=== PATIENT | female | born 1990 | race Caucasian/White ===

== ENCOUNTER 2019-09-07 12:38 | Emergency (ER) | payer SELFPAY ==
[2019-09-07] VITALS (7 sets, daily range): BP systolic 113–126; BP diastolic 84–93; PULSE 105–114; RESP 16–18; TEMP 36.9; O2SAT 94–97; BMI 27.3
--- NOTE | 2019-09-07 | CTR_ITS ---
PROCEDURE INFORMATION: Exam: CT Right Upper Extremity With Contrast, Forearm Exam date and time: 09/07/2019 4:53 PM Age: 29 years old Clinical indication: Swelling and other: Redness; Arm, lower; Right; Additional info: Cellulitis, iv drug user TECHNIQUE: Imaging protocol: CT of the Right upper extremity with intravenous contrast was performed. Exam focused on the forearm. Total DLP: 1580.52 mGy-cm Radiation optimization: All CT scans at this facility use at least one of these dose optimization techniques: automated exposure control; mA and/or kV adjustment per patient size (includes targeted exams where dose is matched to clinical indication); or iterative reconstruction. Contrast material: OMNI 300; Contrast volume: 75 ml; Contrast route: IV; COMPARISON: No relevant prior studies available. FINDINGS: Bones/joints: Normal. No acute fracture or dislocation. Soft tissues: Subcutaneous soft tissue edema over the dorsal hand, dorsal medial forearm and dorsal elbow most consistent with cellulitis. No obvious abscess or soft tissue emphysema or osteomyelitis. Vasculature: Minimal subcutaneous fat edema over a superficial vein in the anterior distal arm without thrombus or occlusion. Axial series 5, image 60. CT/CT forearm RT w con [id number] IMPRESSION: 1. Subcutaneous soft tissue edema over the dorsal hand, dorsal medial forearm and dorsal elbow most consistent with cellulitis. 2. No obvious abscess or soft tissue emphysema or osteomyelitis. 3. Minimal subcutaneous fat edema over a superficial vein in the anterior distal arm without thrombus or occlusion. Axial series 5, image 60. Radiation Dose CTDIVOL = (mGy): DLP = 1580.52 (mGy-cm)
[2019-09-07 14:55] LABS: Basophils % 0.3 %; Eosinophils # 0.2 10^3/uL (0.0-0.8); Eosinophils % 1.4 %; Hematocrit 39.6 % (37.0-47.0); Hemoglobin 12.7 g/dL (11.5-15.3); Lymphocytes # 3.3 10^3/uL (0.8-4.8); Lymphocytes % 28.1 %; Mean Corpuscular HGB Conc 32.1 g/dL (30.0-36.0); Mean Corpuscular Hemoglobin 29.3 pg (28.0-34.0); Mean Corpuscular Volume 91.5 fL (81-99); Mean Platelet Volume 10.6 fL (7.4-10.4); Monocytes % 8.3 %; Neutrophils # 7.3 10^3/uL (1.8-7.7); Neutrophils % 61.6 %; Nucleated Red Blood Cells % 0 %; Platelet Count 274 10^3/cmm (130-400); Red Blood Count 4.33 10^6/uL (4.1-5.3); Red Cell Distribution Width 12.4 % (12.1-15.1); White Blood Count 11.8 10^3/uL (4.0-10.0)
--- NOTE | 2019-09-07 15:10 | ED_ITS ---
Documented by User: DAVID Michel 09/07/19 16:19 HPI - Skin/Abscess/Foreign Bdy General: Chief complaint: Skin/Abscess/Foreign Body Stated complaint: BI-LAT ARM PAIN Time Seen by Provider: 09/07/19 15:00 History of Present Illness: HPI narrative: Patient is a 29-year-old female who comes to the ED with upper extremity cellulitis. 4 days ago patient was shooting up methamphetamines. Patient says the person doing it was having some trouble and attempted injecting multiple sites on right and left arm. Over the last 4 days she has developed erythemic, warmth and swelling around the multiple injection sites. She denies any fevers but does state that she has had the chills. She also has felt nauseous. The cellulitis on the right hand was the first sign of infection to show up and is the more painful of all the spots. P baldev does not remember when she received her last tetanus shot. Patient also reports having MRSA one time in her life as a child. Associated symptoms: Reports chills; Deny fever(s), nausea or vomiting Review of Systems General: Reports: 10 or more systems reviewed and unremarkable except in HPI and below Const: Reports: chills; Denies: fever or fatigue Eyes: Denies: change in vision or eye discomfort ENMT: Denies: throat pain, painful swallowing, nasal discharge or nasal congestion Card: Denies: chest pain, palpitations, edema, swelling of feet/ankles, shortness of breath on exertion or shortness of breath when lying down Resp: Denies: shortness of breath, productive cough or non-productive cough GI: Denies: abdominal pain, nausea, vomiting, diarrhea, constipation or blood in stool : Denies: flank pain, painful urination or blood in urine Musc: Reports: extremity pain (Right Hand), extremity swelling (Right Hand) and redness (Right and Left upper extremities); Denies: neck pain or back pain Skin/Breast: Reports: redness, skin tenderness and skin swelling; Denies: rash Neuro: Denies: headache, numbness in extremities or weakness in extremities [facility] ED PFSH: Social History Smoking and tobacco status: current every day smoker Physical Exam Narrative: EXAM NARRATIVE: Patient is a 29-year-old female who is sitting comfortably in the bed when I enter the exam room. Just walking into the room I noticed multiple signs of cellulitis on both right and left arms. Const: COMMON NORMALS: oriented x3 HENMT: COMMON NORMALS: normocephalic HEAD & SCALP: normocephalic MOUTH: oral and palatal mucosa normal THROAT: posterior oropharynx normal and uvula midline Neck/C-Spine: COMMON NORMALS: supple GENERAL: Yes normal visual inspection Resp: COMMON NORMALS: normal respiratory effort, no retractions, no use of accessory muscles and clear to auscultation bilaterally AUSCULTATION: clear to auscultation bilaterally Cardio: COMMON NORMALS: regular rate, regular rhythm, S1 normal heart sound, S2 normal heart sound, no gallops, no clicks, no murmurs and peripheral pulses 2+ throughout RATE: regular rate RHYTHM: regular rhythm HEART SOUNDS: S1 normal and S2 normal PERIPHERAL PULSES: pulses 2+ throughout GI: COMMON NORMALS: normal to inspection, nondistended, normoactive bowel sounds, soft to palpation, non-tender and no masses PALPATION: Yes soft : COMMON NORMALS: Yes no CVA tenderness BLADDER/KIDNEY EXAM: Yes no CVA tenderness Back/Pelvis: COMMON NORMALS: no CVA tenderness Extremity: NARRATIVE EXTREMITY EXAM: Multiple sites of cellulitis (injection sites) on both right and left upper extremities. Neuro: COMMON NORMALS: oriented x3 and moves all extremities Skin: OTHER: Patient has multiple sites of cellulitis on both right and left upper extremities. Right hand looks the most severe and is swollen, erythemic, warm and tender. There is also some tracking up the right arm and 2 other injection sites one on the forearm and one on the upper arm. Those sites have swelling, erythema, warmth as well. Sites are indurated and nonfluctuant. The left arm has multiple injection sites (Cellulitis) as well. Locations are on the on the left hand, left forearm and left upper arm. Course Vital Signs: Vital signs: Vital Signs Temperature 98.4 F 09/07/19 12:53 Pulse Rate 114 H 09/07/19 12:53 Respiratory Rate 16 09/07/19 18:00 Blood Pressure 113/84 09/07/19 17:00 Pulse Oximetry 94 09/07/19 12:53 MDM - Skin/Abscess/Foreign Bdy Lab Data: Attestation: I reviewed the patient's lab results. Labs: Lab Results 09/07/19 09/07/19 09/07/19 Range/Units 14:27 14:27 14:27 WBC 11.8 H (4.0-10.0) 10^3/ uL RBC 4.33 (4.1-5.3) 10^6/u L Hgb 12.7 (11.5-15.3) g/dL Hct 39.6 (37.0-47.0) % MCV 91.5 (81-99) fL MCH 29.3 (28.0-34.0) pg MCHC 32.1 (30.0-36.0) g/dL RDW 12.4 (12.1-15.1) % Plt Count 274 (130-400) 10^3/c mm MPV 10.6 H (7.4-10.4) fL Neut % (Auto) 61.6 % Lymph % (Auto) 28.1 % [place] % (Auto) 8.3 % Eos % (Auto) 1.4 % Baso % (Auto) 0.3 % Neut # (Auto) 7.3 (1.8-7.7) 10^3/u L Lymph # (Auto) 3.3 (0.8-4.8) 10^3/u L [place] # (Auto) 1.0 H (0.2-0.9) 10^3/u L Eos # (Auto) 0.2 (0.0-0.8) 10^3/u L Baso # (Auto) 0.0 (0.0-0.1) 10^3/u L Nucleated RBC % (a uto) 0 % Nucleated RBCs # 0.0 /100WBC ESR (0-15) mm/hr Sodium 136 (136-145) mmol/L Potassium 3.9 (3.5-5.1) mmol/L Chloride 100 (98-107) mmol/L Carbon Dioxide 24 (22-29) mmol/L Anion Gap 15.9 (5-19) BUN 7 (6-20) mg/dL Creatinine 0.6 (0.5-0.9) mg/dL GFR Calculation 118.2 (90-130) mL/min Glucose 119 H (65-115) mg/dL Calculated Osmolal ity 279 L (285-295) mOsm/k g Calcium 9.3 (8.5-10.5) mg/dL Total Bilirubin 0.3 (0.15-1.2) mg/dL AST 23 (0-32) U/L ALT 17 (0-33) U/L Alkaline Phosphata se 78 (35-105) IU/L C-Reactive Protein (0.0-4.9) mg/L Total Protein 7.4 (6.6-8.7) g/dL Albumin 4.0 (3.5-5.2) g/dL Globulin 3.4 (1.3-4.6) g/dL HCG, Qual Negative (Negative) 09/07/19 09/07/19 Range/Units 14:27 14:27 WBC (4.0-10.0) 10^3/ uL RBC (4.1-5.3) 10^6/u L Hgb (11.5-15.3) g/dL Hct (37.0-47.0) % MCV (81-99) fL MCH (28.0-34.0) pg MCHC (30.0-36.0) g/dL RDW (12.1-15.1) % Plt Count (130-400) 10^3/c mm MPV (7.4-10.4) fL Neut % (Auto) % Lymph % (Auto) % [place] % (Auto) % Eos % (Auto) % Baso % (Auto) % Neut # (Auto) (1.8-7.7) 10^3/u L Lymph # (Auto) (0.8-4.8) 10^3/u L [place] # (Auto) (0.2-0.9) 10^3/u L Eos # (Auto) (0.0-0.8) 10^3/u L Baso # (Auto) (0.0-0.1) 10^3/u L Nucleated RBC % (a uto) % Nucleated RBCs # /100WBC ESR 25 H (0-15) mm/hr Sodium (136-145) mmol/L Potassium (3.5-5.1) mmol/L Chloride (98-107) mmol/L Carbon Dioxide (22-29) mmol/L Anion Gap (5-19) BUN (6-20) mg/dL Creatinine (0.5-0.9) mg/dL GFR Calculation (90-130) mL/min Glucose (65-115) mg/dL Calculated Osmolal ity (285-295) mOsm/k g Calcium (8.5-10.5) mg/dL Total Bilirubin (0.15-1.2) mg/dL AST (0-32) U/L ALT (0-33) U/L Alkaline Phosphata se (35-105) IU/L C-Reactive Protein 58.7 H (0.0-4.9) mg/L Total Protein (6.6-8.7) g/dL Albumin (3.5-5.2) g/dL Globulin (1.3-4.6) g/dL HCG, Qual (Negative) Discharge Plan Discharge Patient Disposition: Home, Self-Care Clinical Impression: IV drug abuse Cellulitis Qualifiers: Site of cellulitis: extremity Site of cellulitis of extremity: upper extremity Laterality: unspecified laterality Qualified Code(s): L03.119 - Cellulitis of unspecified part of limb Condition: Stable Prescriptions: New Bactrim DS 800-160 mg tablet 1 tab PO BID 10 Days Qty: 20 RF: 0 No Action Tylenol 325 mg Tablet 650 mg PO PRN RF: 0 Adult Multivitamin Gummies 200 mcg Tablet,Chewable 400 mcg PO DAILY RF: 0 Discharge Diet: Regular Discharge Activity: Resume usual activity Patient Instructions: Cellulitis (ED), Methamphetamine Abuse (ED) Activity Restrictions/Additional Instructions: Follow-up with your PCP or return to the ED for reevaluation in 5 to 7 days. Take full course of antibiotics as prescribed. You can take Tylenol or ibuprofen for fever or pain. Drink plenty of fluids and stay hydrated. Coding Level of Care Code ED Directory Carrier for Chg Fwd Exam Comprehensive Documented by User: DIXIE López 09/07/19 18:09 HPI - Skin/Abscess/Foreign Bdy General: Chief complaint: Skin/Abscess/Foreign Body Stated complaint: BI-LAT ARM PAIN Time Seen by Provider: 09/07/19 15:00 [facility] ED PFSH: Social History Smoking and tobacco status: current every day smoker Course ED course: Received patient from [facility]. Awaiting for CT scan results, if no deep cellulitis or nec. fascitis recommended discharge with treatment of antibiotic Vital Signs: Vital signs: Vital Signs Temperature 98.4 F 09/07/19 12:53 Pulse Rate 114 H 09/07/19 12:53 Respiratory Rate 16 09/07/19 18:00 Blood Pressure 113/84 09/07/19 17:00 Pulse Oximetry 94 09/07/19 12:53 MDM - Skin/Abscess/Foreign Bdy MDM Narrative: Medical decision making narrative: Patient came in today with areas of cellulitis to bilateral upper extremities. Patient has good range of motion of the extremities. Good pulses in the extremities. Prompt capillary refill distal to the injuries. Differential diagnosis includes cellulitis, necrotizing fasciitis, osteomyelitis, DVT. Laboratory values were insignificant. CT scan of the upper extremities noted cellulitis without any deep tissue abnormalities. Reviewed exam with patient recommended treatment with Bactrim as directed by Juan Luis Pillai PA-C. Reviewed post visit treatment and need for follow-up. Patient reported understanding. Lab Data: Labs: Lab Results 09/07/19 09/07/19 09/07/19 Range/Units 14:27 14:27 14:27 WBC 11.8 H (4.0-10.0) 10^3/ uL RBC 4.33 (4.1-5.3) 10^6/u L Hgb 12.7 (11.5-15.3) g/dL Hct 39.6 (37.0-47.0) % MCV 91.5 (81-99) fL MCH 29.3 (28.0-34.0) pg MCHC 32.1 (30.0-36.0) g/dL RDW 12.4 (12.1-15.1) % Plt Count 274 (130-400) 10^3/c mm MPV 10.6 H (7.4-10.4) fL Neut % (Auto) 61.6 % Lymph % (Auto) 28.1 % Newport % (Auto) 8.3 % Eos % (Auto) 1.4 % Baso % (Auto) 0.3 % Neut # (Auto) 7.3 (1.8-7.7) 10^3/u L Lymph # (Auto) 3.3 (0.8-4.8) 10^3/u L Newport # (Auto) 1.0 H (0.2-0.9) 10^3/u L Eos # (Auto) 0.2 (0.0-0.8) 10^3/u L Baso # (Auto) 0.0 (0.0-0.1) 10^3/u L Nucleated RBC % (a uto) 0 % Nucleated RBCs # 0.0 /100WBC ESR (0-15) mm/hr Sodium 136 (136-145) mmol/L Potassium 3.9 (3.5-5.1) mmol/L Chloride 100 (98-107) mmol/L Carbon Dioxide 24 (22-29) mmol/L Anion Gap 15.9 (5-19) BUN 7 (6-20) mg/dL Creatinine 0.6 (0.5-0.9) mg/dL GFR Calculation 118.2 (90-130) mL/min Glucose 119 H (65-115) mg/dL Calculated Osmolal ity 279 L (285-295) mOsm/k g Calcium 9.3 (8.5-10.5) mg/dL Total Bilirubin 0.3 (0.15-1.2) mg/dL AST 23 (0-32) U/L ALT 17 (0-33) U/L Alkaline Phosphata se 78 (35-105) IU/L C-Reactive Protein (0.0-4.9) mg/L Total Protein 7.4 (6.6-8.7) g/dL Albumin 4.0 (3.5-5.2) g/dL Globulin 3.4 (1.3-4.6) g/dL HCG, Qual Negative (Negative) 09/07/19 09/07/19 Range/Units 14:27 14:27 WBC (4.0-10.0) 10^3/ uL RBC (4.1-5.3) 10^6/u L Hgb (11.5-15.3) g/dL Hct (37.0-47.0) % MCV (81-99) fL MCH (28.0-34.0) pg MCHC (30.0-36.0) g/dL RDW (12.1-15.1) % Plt Count (130-400) 10^3/c mm MPV (7.4-10.4) fL Neut % (Auto) % Lymph % (Auto) % [place] % (Auto) % Eos % (Auto) % Baso % (Auto) % Neut # (Auto) (1.8-7.7) 10^3/u L Lymph # (Auto) (0.8-4.8) 10^3/u L [place] # (Auto) (0.2-0.9) 10^3/u L Eos # (Auto) (0.0-0.8) 10^3/u L Baso # (Auto) (0.0-0.1) 10^3/u L Nucleated RBC % (a uto) % Nucleated RBCs # /100WBC ESR 25 H (0-15) mm/hr Sodium (136-145) mmol/L Potassium (3.5-5.1) mmol/L Chloride (98-107) mmol/L Carbon Dioxide (22-29) mmol/L Anion Gap (5-19) BUN (6-20) mg/dL Creatinine (0.5-0.9) mg/dL GFR Calculation (90-130) mL/min Glucose (65-115) mg/dL Calculated Osmolal ity (285-295) mOsm/k g Calcium (8.5-10.5) mg/dL Total Bilirubin (0.15-1.2) mg/dL AST (0-32) U/L ALT (0-33) U/L Alkaline Phosphata se (35-105) IU/L C-Reactive Protein 58.7 H (0.0-4.9) mg/L Total Protein (6.6-8.7) g/dL Albumin (3.5-5.2) g/dL Globulin (1.3-4.6) g/dL HCG, Qual (Negative) Discharge Plan Discharge Patient Disposition: Home, Self-Care Clinical Impression: IV drug abuse Cellulitis Qualifiers: Site of cellulitis: extremity Site of cellulitis of extremity: upper extremity Laterality: unspecified laterality Qualified Code(s): L03.119 - Cellulitis of unspecified part of limb Condition: Stable Prescriptions: New Bactrim DS 800-160 mg tablet 1 tab PO BID 10 Days Qty: 20 RF: 0 No Action Tylenol 325 mg Tablet 650 mg PO PRN RF: 0 Adult Multivitamin Gummies 200 mcg Tablet,Chewable 400 mcg PO DAILY RF: 0 Discharge Diet: Regular Discharge Activity: Resume usual activity Patient Instructions: Cellulitis (ED), Methamphetamine Abuse (ED) Activity Restrictions/Additional Instructions: Follow-up with your PCP or return to the ED for reevaluation in 5 to 7 days. Take full course of antibiotics as prescribed. You can take Tylenol or ibuprofen for fever or pain. Drink plenty of fluids and stay hydrated. Coding Level of Care Code ED Directory Carrier for Britney Fwd Exam Comprehensive
[2019-09-07 15:15] LABS: Alanine Aminotransferase 17 U/L (0-33); Alkaline Phosphatase 78 IU/L (35-105); Anion Gap 15.9 (5-19); Aspartate Amino Transferase 23 U/L (0-32); Blood Urea Nitrogen 7 mg/dL (6-20); Calcium 9.3 mg/dL (8.5-10.5); Carbon Dioxide 24 mmol/L (22-29); Chloride 100 mmol/L (98-107); Globulin 3.4 g/dL (1.3-4.6); Glomerular Filtration Rate 118.2 mL/min (90-130); Glucose 119 mg/dL (65-115); Osmolality Calculated 279 mOsm/kg (285-295); Potassium 3.9 mmol/L (3.5-5.1); Sodium 136 mmol/L (136-145); Total Bilirubin 0.3 mg/dL (0.15-1.2); Total Protein 7.4 g/dL (6.6-8.7)
[2019-09-07 15:18] LABS: HCG, Serum Qual Negative (Negative)
--- NOTE | 2019-09-07 15:29 | CTR_ITS ---
PROCEDURE INFORMATION: Exam: CTA Left Upper Extremity With Contrast Exam date and time: 09/07/2019 4:04 PM Age: 29 years old Clinical indication: Swelling and other: Redness; Arm, lower; Left; Additional info: Cellulitis, iv drug user TECHNIQUE: Imaging protocol: Computed tomographic angiography of the Left upper extremity with intravenous contrast material, including non-contrast images if performed. 3D rendering: MIP and/or 3D reconstructed images were created by the technologist. Total DLP: 1450.93 mGy-cm Radiation optimization: All CT scans at this facility use at least one of these dose optimization techniques: automated exposure control; mA and/or kV adjustment per patient size (includes targeted exams where dose is matched to clinical indication); or iterative reconstruction. Contrast material: OMNI 300; Contrast volume: 75 ml; Contrast route: IV; COMPARISON: No relevant prior studies available. FINDINGS: Left subclavian artery: No acute findings. No occlusion or significant stenosis. Left axillary artery: No acute findings. No occlusion or significant stenosis. Left brachial artery: No acute findings. No occlusion or significant stenosis. Left radial artery: No acute findings. No occlusion or significant stenosis. Left ulnar artery: No acute findings. No occlusion or significant stenosis. Bones/joints: No acute fracture. No dislocation. Soft tissues: Edema in the subcutaneous fat of the dorsal hand, dorsal lateral wrist, dorsal lateral forearm and anterior medial elbow. Probable cellulitis without obvious abscess, soft tissue emphysema or osteomyelitis. CT/CT forearm LT w con [id number] IMPRESSION: Edema in the subcutaneous fat of the dorsal hand, dorsal lateral wrist, dorsal lateral forearm and anterior medial elbow. Probable cellulitis without obvious abscess, soft tissue emphysema or osteomyelitis. Radiation Dose CTDIVOL = (mGy): DLP = 1450.93 (mGy-cm)
[2019-09-07] MEDS: HYDROcodone-acetaminophen 7.5-325 mg Tablet 1 TAB PO (15:33)
[2019-09-07] MEDS: sodium chloride 0.9% 1,000 ML 999 ML IV (15:33)
[2019-09-07] MEDS: tetanus-dipt-pertussis 0.5 mL SDV IM (16:17)
[2019-09-07 16:21] LABS: C Reactive Protein 58.7 mg/L (0.0-4.9)
[2019-09-07 16:50] LABS: Erythrocyte Sedimentation Rate 25 mm/hr (0-15)
[2019-09-07] MEDS: iohexol 300 mg/mL 100 mL Btl IV ×2 (17:02→17:05)
[2019-09-07] MEDS: ondansetron 2 mg/ML SDV 2 mL 4 MG IVP (17:10)
[2019-09-07] MEDS: morphine 4 mg/mL SDV 1 mL IVP (17:10)
[2019-09-07] MEDS: HYDROcodone-acetaminophen 5-325 mg Tablet 1 TAB PO (18:10)
== END 2019-09-07 18:52 | disposition home or self-care (01) ==
PROVIDERS: Physician Assistant; Emergency Provider Nurse Practitioner Family
DX: L03.114 Cellulitis of left upper limb (principal); L03.113 Cellulitis of right upper limb; F15.90 Other stimulant use, unspecified, uncomplicated; F17.200 Nicotine dependence, unspecified, uncomplicated; Z86.14 Personal history of Methicillin resistant Staphylococcus aureus infection
CPT/HCPCS: 12345; 36415; 73201; 80053; 84703; 85025; 85651; 86140; 87040; 90471; 90715; 96360; 96361; 96365; 96366; 96375; 99283; 99284; J2270; J2405; J3370; J7030; J7050; Q9967

== ENCOUNTER 2024-03-07 07:34 | Emergency (ER) | payer MEDICAID, SELFPAY ==
--- NOTE | 2024-03-07 07:44 | XRR_ITS ---
PROCEDURE INFORMATION: Exam: XR Right Foot Exam date and time: 03/07/2024 7:58 AM Age: 33 years old Clinical indication: Injury or trauma; Other: Twisted ankle; Sprain or strain; Foot; Right TECHNIQUE: Imaging protocol: Radiologic exam of the right foot. Views: 3 or more views. COMPARISON: No relevant prior studies available. FINDINGS: Bones/joints: There is hallux valgus deformity with bunion formation involving the 1st MTP joint and distal 1st metatarsal. No fracture or dislocation is appreciated. Joint spaces are relatively well preserved. Small osteophytes are noted involving the talonavicular joint and articulation of the navicular with the adjacent cuneiforms. Bony mineralization is normal. Soft tissues: Normal. XR/XR foot RT min 3V* [id number] IMPRESSION: 1. Slight hallux valgus deformity 1st MTP joint. 2. Bunion deformity distal 1st metatarsal.
[2024-03-07 08:10] VITALS: BP 148/93; PULSE 71; RESP 18; TEMP 36.8; O2SAT 97; BMI 31.0
--- NOTE | 2024-03-07 08:21 | XRR_ITS ---
PROCEDURE INFORMATION: Exam: XR Right Ankle Exam date and time: 03/07/2024 8:30 AM Age: 33 years old Clinical indication: Injury or trauma; Other: Twisted ankle; Sprain or strain; Right TECHNIQUE: Imaging protocol: Radiologic exam of the right ankle. Views: 3 or more views. COMPARISON: CR XR foot RT min 3V* [id number] 03/07/2024 7:58 AM FINDINGS: Bones/joints: There is a small ossified bony density adjacent to the tip of the fibula. This appears to be old and may represent an old unfused fracture fragment or an accessory ossicle. No acute fracture or dislocation is appreciated. Bony mineralization is normal. Joint spaces are relatively well preserved. Soft tissues: There is soft tissue swelling laterally greater than medially. XR/XR ankle RT min 3V* [id number] IMPRESSION: 1. No acute fracture identified. 2. Soft tissue swelling.
--- NOTE | 2024-03-07 08:22 | W.ED.EXTPRO ---
HPI - Extremity Problem General: Chief complaint: Extremity Injury, Lower Stated complaint: Right foot injury Time Seen by Provider: 03/07/24 07:43 History of Present Illness: 33-year-old female who presents to the emergency room complaining of right foot injury. She was lifting a refrigerator into a truck and had an inversion type injury to her right ankle foot. Relates pain to the medial aspect of the foot distal and anterior to the medial malleolus. There is moderate amount of swelling present. Associated symptoms: Deny chest pain, fever(s) or rash Related Data Home Medications Medication Instructions Recorded Confirmed acetaminophen 325 mg tablet 650 mg PO Q6H PRN Pain 09/07/19 03/07/24 (Tylenol) buspirone 5 mg tablet 5 mg PO BID PRN Anxiety 03/07/24 03/07/24 fluoxetine 40 mg capsule 40 mg PO DAILY 03/07/24 03/07/24 varenicline 0.5 mg (11)-1 mg (42) See Rx Instructions .Route .COMPLEX 03/07/24 03/07/24 tablets in a dose pack Previous Rx's Medication Instructions Recorded diclofenac sodium 75 mg 75 mg PO Q12H PRN pain #20 tabs 03/07/24 tablet,delayed release Allergies Allergy/AdvReac Type Severity Reaction Status Date / Time No Known Allergies Allergy Verified 09/07/19 12:57 Review of Systems Const: Denies: fever(s) or chills Card: Denies: chest pain Resp: Denies: dyspnea GI: Denies: abdominal pain : Denies: dysuria, urinary frequency or urinary urgency Musc: Denies: neck pain or back pain Skin/Breast: Denies: rash [facility] ED PFSH: Social History Smoking and tobacco/nicotine status: current every day tobacco/nicotine user Physical Exam Const: COMMON NORMALS: no acute distress GENERAL APPEARANCE: cooperative and comfortable ORIENTATION/CONSCIOUSNESS: Yes awake, Yes oriented to person, Yes oriented to place and Yes oriented to time HENMT: COMMON NORMALS: normocephalic, atraumatic and hearing grossly normal bilaterally HEAD & SCALP: normocephalic and atraumatic Resp: COMMON NORMALS: normal respiratory effort, No retractions, No use of accessory muscles and clear to auscultation bilaterally AUSCULTATION: clear to auscultation bilaterally Cardio: COMMON NORMALS: regular rate, regular rhythm and No murmurs present (Cardio) RATE: regular rate RHYTHM: regular rhythm Extremity: COMMON NORMALS: normal to inspection, capillary refill normal and no calf tenderness OTHER: Exam of the right ankle shows some moderate swelling both medial and laterally tender to touch dorsalis pedis posterior tibialis pulses intact. Neuro: SENSORIUM/ORIENTATION: Yes oriented to person, Yes oriented to place and Yes oriented to time Skin: COMMON NORMALS: no rashes or lesions noted GENERAL SKIN EXAM: no rashes or lesions noted Course Vital Signs: Vital signs: Vital Signs Temperature 98.3 F 03/07/24 08:39 Pulse Rate 74 03/07/24 08:39 Respiratory Rate 16 03/07/24 08:39 Blood Pressure 132/83 03/07/24 08:39 Pulse Oximetry 98 03/07/24 08:39 Oxygen Delivery Me thod Room Air 03/07/24 08:39 MDM - Extremity (Nontraumatic) Medical Decision Making X-ray shows distal fibula avulsion fracture she does have some mild tenderness 0 placed in a posterior splint have her follow-up with podiatry nonweightbearing anti-inflammatories as needed Lab Data Radiology Impressions Foot X-Ray 03/07/24 07:44 IMPRESSION: 1. Slight hallux valgus deformity 1st MTP joint. 2. Bunion deformity distal 1st metatarsal. Ankle X-Ray 03/07/24 08:21 IMPRESSION: 1. No acute fracture identified. 2. Soft tissue swelling. All radiology interpretation(s) finalized by discharge Discharge Plan Discharge Patient Disposition: Home Clinical Impression: Avulsion fracture of distal fibula Condition: Stable Prescriptions: New diclofenac sodium 75 mg tablet,delayed release (DR/EC) 75 mg PO Q12H PRN (Reason: pain) Qty: 20 0RF No Action acetaminophen [Tylenol] 325 mg Tablet 650 mg PO Q6H PRN (Reason: Pain) fluoxetine 40 mg capsule 40 mg PO DAILY buspirone 5 mg tablet 5 mg PO BID PRN (Reason: Anxiety) varenicline 0.5 mg (11)- 1 mg (42) tablets,dose pack See Rx Instructions .ROUTE .COMPLEX Rx Instructions: Take as directed per package instructions. Discharge Orders: Discharge ED (Routine); Ordered 03/07/24 Ordered By: Esa Wood Referrals: Siliva Renee DO [Primary Care Provider] - Discharge Diet: Usual diet Discharge Activity: Limit activity as instructed Patient Instructions: Opioid Safety, Pain Management Activity Restrictions/Additional Instructions: Thank you for choosing [facility] for your healthcare needs today. It is very important that you follow up as instructed or that you return to the Emergency Department should you have concerns or if your condition changes or worsens in any way. You were seen today after an ankle injury. It appears to be a small avulsion from the distal part of the fibula. Recommend a posterior splint nonweightbearing and will refer you to orthopedics/podiatry. Stand Alone Forms: Work/School Release Coding Level of Care Code ED Caponizer for Britney Villanueva
[2024-03-07 08:39] VITALS: BP 132/83; PULSE 74; RESP 16; TEMP 36.8; O2SAT 98
--- NOTE | 2024-03-07 09:38 | DCPLANNER ---
Message sent to Podiatry for follow up.
== END 2024-03-07 11:03 | disposition home or self-care (01) ==
PROVIDERS: Emergency Provider Family Medicine; PCP Family Medicine
DX: S82.831A Other fracture of upper and lower end of right fibula, initial encounter for closed fracture (principal); Z72.0 Tobacco use; X50.1XXA Overexertion from prolonged static or awkward postures, initial encounter
CPT/HCPCS: 29515; 73610; 73630; 99283; E0114

== ENCOUNTER 2025-04-11 20:19 | Emergency (ER) | payer MEDICAID, SELFPAY ==
--- OUTSIDE RECORDS SUMMARY | 2025-04-11 20:29 | XMS_ITS | Patient Health Record ---
Author Organization [facility] Address [address] [place] [id number] Care Team Providers Care Knit Tubing Dyer Name Role Phone Non 1st Choice Provider, Provider Primary Care P iva Unavailable [address] Unavailable Reason For Referral No Information Immunizations Vaccine Route Administration Date Status Comme nts Coronavirus Moderna #1 Unknown 10/08/2021 Administered Coronavirus Moderna #2 IM Intramuscular 02/04/2022 Adminis tered Plan Of Treatment No Information
[2025-04-11 20:45] VITALS: BP 145/90; PULSE 85; TEMP 36.6; O2SAT 97
--- NOTE | 2025-04-11 21:25 | XRR_ITS ---
PROCEDURE INFORMATION: Exam: XR Left Finger(s) Exam date and time: 04/11/2025 9:25 PM Age: 34 years old Clinical indication: Injury or trauma; Fall; Dislocation; Severity not specified; Finger; Left; Thumb; Additional info: Thumb deformity TECHNIQUE: Imaging protocol: Radiologic exam of the left fingers. Views: Minimum 2 views. COMPARISON: No relevant prior studies available. FINDINGS: Bones/joints: Partial dorsal subluxation of the MCP joint. No fractures. Soft tissues: Normal. XR/XR finger LT min 2V [id number] IMPRESSION: Partial subluxation.
[2025-04-11 21:36] VITALS: BP 152/108; PULSE 86; O2SAT 100
--- NOTE | 2025-04-11 21:48 | XRR_ITS ---
PROCEDURE INFORMATION: Exam: XR Left Hand Exam date and time: 04/11/2025 9:51 PM Age: 34 years old Clinical indication: Injury or trauma; Other: Dog bite/poss dislocation; Dislocation and laceration; Severity not specified; Finger; Left; Thumb; Hand; Additional info: Dog bite, dislocation TECHNIQUE: Imaging protocol: Radiologic exam of the left hand. Views: 3 or more views. COMPARISON: CR ( EX, ) 04/11/2025 9:25 PM FINDINGS: Bones/joints: A small round well corticated calcification anterior to the base of the middle phalanx of the 3rd digit maybe related to old trauma. No acute appearing bony abnormality is demonstrated. Soft tissues: Some prominence of the soft tissues between the 1st and vacuum metacarpals. No radiopaque foreign bodies. No air in the soft tissues. XR/XR hand LT min 3V* [id number] IMPRESSION: No acute appearing bony abnormality is evident. Maybe soft tissue swelling between the 1st and 2nd metacarpal.
[2025-04-11 22:35] VITALS: BP 139/81; PULSE 71; O2SAT 99
--- NOTE | 2025-04-11 22:38 | ED_ITS ---
HPI - Extremity Problem General: Chief complaint: Extremity Injury, Upper Stated complaint: tried to relocate her thumb herself pain L hand Time Seen by Provider: 04/11/25 21:48 History of Present Illness: Patient had cjow puppies, and were feeding these, with cans of dog food, when there was a scramble with all the puppies. She then had her left thumb snapped back out of place. She tried to place it back into place. This occurred just prior to arrival. No other issues. Associated symptoms: Deny chest pain, fever(s) or rash Related Data Home Medications ?Medication ?Instructions ?Recorded ?Confirmed acetaminophen 325 mg tablet 650 mg PO Q6H PRN Pain 06/1603/08/24 (Tylenol) buspirone 5 mg tablet 5 mg PO BID PRN Anxiety 02/2603/08/24 fluoxetine 40 mg capsule 40 mg PO DAILY 03/07/2402/26 varenicline tartrate 0.5 mg (11)-1 See Rx Instructions .Route .COMPLEX 03/07/24 03/08/24 mg (42) tablets in a dose pack Previous Rx's ?Medication ?Instructions ?Recorded diclofenac sodium 75 mg 75 mg PO Q12H PRN pain #20 t abs 03/07/24 tablet,delayed release ASO brace #1 ea 03/08/24 CAM boot / weight bearing #1 ea 03/08/24 ketorolac 10 mg tablet 10 mg PO Q8H PRN pain 5 days #14 04/11/25 tabs methocarbamol 750 mg tablet 750 mg PO Q8H PRN muscle s pasm #30 04/11/25 tabs Allergies Allergy/AdvReac Type Severity Reaction Status Date / Time No Known Allergies Allergy Verified 04/11/25 20:50 Review of Systems General: Reports: 10 or more systems reviewed and unremarkable except in HPI and below Const: Denies: fever(s) or chills Card: Denies: chest pain or palpitations Resp: Denies: productive cough GI: Denies: abdominal pain, nausea or vomiting : Denies: flank pain Musc: Reports: extremity swelling, joint pain, joint stiffness, limited range of motion and deformity Skin/Breast: Reports: nail changes and change in hair; Denies: rash or sores Neuro: Reports: numbness in extremities, sensory changes and difficulty walking Psych: Denies: suicidal ideation Matt/Lymph: Denies: easy bruising PFSH ED PFSH: Social History Smoking and tobacco/nicotine status: unknown if used tobacco/nicotine Physical Exam Const: COMMON NORMALS: no acute distress, average body habitus and patient oriented x3 HENMT: COMMON NORMALS: normocephalic and atraumatic HEAD & SCALP: normocephalic and atraumatic Neck/C-Spine: COMMON NORMALS: full ROM and no lymphadenopathy Chest: COMMONS NORMALS: normal inspection of the chest and normal palpation of entire chest wall Resp: COMMON NORMALS: normal respiratory effort, No retractions and clear to auscultation bilaterally AUSCULTATION: clear to auscultation bilaterally Cardio: COMMON NORMALS: regular rate and regular rhythm RATE: regular rate RHYTHM: regular rhythm GI: COMMON NORMALS: Normal to inspection, nondistended, normoactive bowel sounds present, Soft to palpation, non-tender and No hepatosplenomegaly present PALPATION: Yes Soft to palpation and Yes No hepatosplenomegaly present Extremity: COMMON NORMALS: capillary refill normal LEFT UPPER EXTREMITY: Yes hand & digits Left hand and digits: Yes inspection (Deformity), Yes palpation (Tender first MCP) and Yes ROM (Intact.) OTHER: closed. Extension and flexion intact Neuro: COMMON NORMALS: patient oriented x3 Course Vital Signs: Vital signs: Vital Signs Temperature 97.8 F 04/11/25 20:45 Pulse Rate 71 04/11/25 22:35 Blood Pressure 139/81 04/11/25 22:35 Pulse Oximetry 99 04/11/25 22:35 Oxygen Delivery Me thod Room Air 04/11/25 20:45 MDM - Extremity (Nontraumatic) Medical Decision Making Patient is a 34-year-old female that had an injury to her left thumb just prior to arrival. She did have minimal amount of dislocation that she has placed back in herself. On x-ray, there is minimal displacement/subluxation. X-ray is pending. Plan is discharged home and follow-up with orthopedist with thumb spica with first MCP small appearing fracture. All their questions were answered to their satisfaction. Medical Records I reviewed the patient's medical records. Lab Data I reviewed the patient's lab results. Radiology Impressions Finger X-Ray 04/11/25 21:25 IMPRESSION: Partial subluxation. Hand X-Ray 04/11/25 21:48 IMPRESSION: No acute appearing bony abnormality is evident. Maybe soft tissue swelling between the 1st and 2nd metacarpal. XR interpretation done by ED provider, pending radiology final review Discharge Plan Discharge Patient Disposition: Home Clinical Impression: Fracture of phalanx, proximal, left hand Qualifiers: Encounter type: initial encounter Fracture type: closed Qualified Code(s): S62.619A - Displaced fracture of proximal phalanx of unspecified finger, initial encounter for closed fracture Condition: Stable Prescriptions: New ketorolac 10 mg tablet 10 mg PO Q8H PRN (Reason: pain) 5 Days Qty: 14 0RF methocarbamol 750 mg tablet 750 mg PO Q8H PRN (Reason: muscle spasm) Qty: 30 0RF No Action (DME) CAM boot / weight bearing See Rx Instructions .Route .MEDSUPPLY Qty: 1 0RF Rx Instructions: As directed (DME) ASO brace See Rx Instructions .Route .MEDSUPPLY Qty: 1 0RF Rx Instructions: As directed acetaminophen [Tylenol] 325 mg Tablet 650 mg PO Q6H PRN (Reason: Pain) fluoxetine 40 mg capsule 40 mg PO DAILY buspirone 5 mg tablet 5 mg PO BID PRN (Reason: Anxiety) varenicline tartrate 0.5 mg (11)- 1 mg (42) tablets,dose pack See Rx Instructions .ROUTE .COMPLEX Rx Instructions: Take as directed per package instructions. diclofenac sodium 75 mg tablet,delayed release (DR/EC) 75 mg PO Q12H PRN (Reason: pain) Qty: 20 0RF Discharge Orders: Discharge ED (Routine); Ordered 04/11/25 Ordered By: Lora Lacy Referrals: Mynor Sandy MD [Physician, Orthopedics] - 1 week Rodney Melendez FNP [Primary Care Provider] Discharge Diet: Usual diet Patient Instructions: Thumb Fracture (ED), Patient Portal & Michela Instructions Activity Restrictions/Additional Instructions: - Minimal pain medication has been sent home with you. Use as directed with caution. -Ketorolac/Toradol is at the pharmacy with Robaxin/methocarbamol for pain. You may combine these with Tylenol, however do not utilize ibuprofen/naproxen/NSAIDs. -Follow-up with Dr. Sandy?you can call to coordinate your appointment, however a referral was made in the system regarding your left fracture. -Wear your splint at all times. Do not remove except to shower and then immediately placed back on. - Return to ED with worsening redness, pain, fever greater than 100.4 Thank you for choosing [facility] for your healthcare needs today. You have been screened and evaluated and felt safe for discharge. Health conditions do change or evolve sometimes and as such it is important that you follow up with your Primary Doctor to be re checked, 3-5 days is a general good time frame for follow up. You are always welcome to return to the ED for re assessment if your symptoms are worsening or you have new concerns Print Language: Bulgarian Coding Level of Care Code ED Laboratory Aide for Britney Villanueva
[2025-04-11] MEDS: HYDROcodone-acetaminophen 10-325 mg Tablet 2 TAB PO (23:17)
[2025-04-11] MEDS: ondansetron hcl ODT 4 mg Tab PO (23:17)
[2025-04-11] MEDS: HYDROcodone-acetaminophen 10-325 mg Tablet 1 TAB PO (23:17)
[2025-04-11 23:25] VITALS: BP 129/90; PULSE 88; O2SAT 98
== END 2025-04-11 23:27 | disposition home or self-care (01) ==
PROVIDERS: Emergency Provider Physician Assistant; PCP Nurse Practitioner Family
DX: S63.112A Subluxation of metacarpophalangeal joint of left thumb, initial encounter (principal); X58.XXXA Exposure to other specified factors, initial encounter
CPT/HCPCS: 73130; 73140; 99283; J9999; Q0162

== ENCOUNTER 2025-04-20 06:21 | Day surgery (SDC) | payer MEDICAID, SELFPAY ==
[2025-04-20 06:47] VITALS: BMI 31.0
[2025-04-20 06:55] LABS: OR HCG Qualitative Urine Negative (Negative)
--- NOTE | 2025-04-20 06:59 | W.PM.OPSUD ---
Surgery/Procedure H&P Update DATE OF PROCEDURE: April 20, 2025 DATE H&P PERFORMED: 04/11/25 H&P UPDATE INFORMATION: I have reviewed H&P completed within last 30 days, I have examined patient prior to procedure and No changes to prior documentation PREOP DIAGNOSIS: Dislocation first MCP joint left hand PRIMARY INDICATION FOR PROCEDURE: Dislocation first MCP joint left hand PLANNED PROCEDURE: Operation Date: 04/20/25 08:50 Proposed Procedures p Closed treatment of metacarpophalngeal dislocation single, with manipulation; requiring anesthesia(Left) - Mynor Sandy MD
--- NOTE | 2025-04-20 08:49 | ANES.PREANE2 ---
Pre-Anesthetic Assessment Height/Weight: Height 1.75 m Weight 95.254 kg O2 Del Method Room Air 04/20/25 06:47 Preop Diagnosis: Dislocation first MCP joint left hand Operation Date: 04/20/25 08:50 Proposed Procedures p Closed treatment of metacarpophalngeal dislocation single, with manipulation; requiring anesthesia(Left) - Mynor Sandy MD Familial anesthetic complications: none Was Beta Nik taken within 24 hours: N/A Was Clonidine taken within 24 hours: N/A Last intake: Intake Last Liquid Date 04/19/25 Last Liquid Time 19:00 Last Solid Date 04/19/25 Last Solid Time 19:00 Social Tobacco and No alcohol Exam alert, oriented x 3, clear to auscultation bilaterally and regular rate & rhythm Anesthetic Plan ASA status: 2 Anesthesia: General Risk of > 500 ml blood loss (7ml/kg in children): No Medications/Allergies Home Medications ?Medication ?Instructions ?Recorded ?Confirmed ?Last Taken ?Type acetaminophen 325 mg tablet 650 mg PO Q6H PRN Pain 09/07/19 04/19/25 09/07/19 History (Tylenol) buspirone 5 mg tablet 5 mg PO BID PRN Anxiety 03/07/24 04/19/25 04/19/25 History fluoxetine 40 mg capsule 40 mg PO DAILY 03/07/24 04/19/25 04/19/25 History ASO brace #1 ea 03/08/24 04/19/25 Unknown Rx CAM boot / weight bearing #1 ea 03/08/24 04/19/25 Unknown Rx methocarbamol 750 mg tablet 750 mg PO Q8H PRN muscle spasm #30 04/11/25 04/19/25 04/19/25 Rx tabs dextroamphetamine-amphetamine ER 20 mg PO DAILY 04/19/25 04/19/25 04/19/25 History 20 mg 24hr capsule,extend release hydrocodone 5 mg-acetaminophen 325 1 tab PO PRN 04/19/25 04/19/25 04/19/25 History mg tablet Allergies Allergy/AdvReac Type Severity Reaction Status Date / Time No Known Allergies Allergy Verified 04/19/25 07:52 Current Medications Generic Name Dose Route Start Last Admin Trade Name Freq PRN Reason Stop Dose Admin Sodium Chloride 1,000 mls @ 30 mls/hr 04/20/25 07:00 04/20/25 07:01 Sodium Chloride 0.9% IV 04/21/25 06:59 30 mls/hr .Q24H TERESA Administration PFSH Anesthesia Social History Smoking and tobacco/nicotine status: current every day tobacco/nicotine user
--- NOTE | 2025-04-20 09:55 | PM.OP ---
Operative Report Date of procedure: April 20, 2025 Surgeon: Mynor Sandy MD Procedure: Preoperative diagnosis: Dislocated first MCP joint left hand Postoperative diagnosis: Same Procedure: Closed reduction of first MCP joint dislocation left hand Surgeon: Mynor Sandy MD Anesthesia: General Indications: Charo is a 34-year-old white female who fell and injured her left thumb. Since that time she has pain difficulty and inability to flex the MCP joint of her left thumb. She initially stated that her thumb look like it is the and she tried to reduce it on phone however would not reduce all the way. Therefore seeking orthopedic evaluation. Upon clinical evaluation is apparent that the patient has a jones plate injury at the first MCP joint with a volar plate caught between the metacarpal and proximal phalanx of the thumb. Therefore at this time patient was offered closed reduction with manipulation of the finger versus open reduction with removal of volar plate from the first MCP joint line. All risk benefits to alternatives were discussed and she was agreeable to this at this time. Procedure: After obtaining her consent patient taken the op room placed op table supine position general anesthetic administered. Once good anesthesia achieved under gentle traction manipulation I was able to reduce the first MCP joint. Distal thumb and MCP joint were hyperextended and then slid forward. A palpable click was felt when the volar plate was slid out from this and then normal function and range of motion of the first MCP joint was obtained again. At this point patient was placed in a thumb spica splint. This is held in place of the radius for. Patient awakened transferred to cover room in stable condition
[2025-04-20 09:58] VITALS: BP 134/96; PULSE 76; RESP 16; TEMP 36.1; O2SAT 97
[2025-04-20 10:03] VITALS: BP 146/90; PULSE 72; RESP 10; O2SAT 97
[2025-04-20 10:09] VITALS: BP 163/94; PULSE 72; RESP 10; O2SAT 97
[2025-04-20 10:15] VITALS: BP 138/89; PULSE 72; RESP 10; O2SAT 97
[2025-04-20 10:20] VITALS: BP 114/79; PULSE 64; RESP 15; O2SAT 98
[2025-04-20 10:35] VITALS: BP 136/75; PULSE 84; RESP 18; TEMP 36.3; O2SAT 98
--- NOTE | 2025-04-20 10:45 | ANE.PACU2 ---
Inpatient post-anesthesia follow up: Airway intact: Yes Vital signs: Temperature 97.3 F Pulse Rate 84 Respiratory Rate 18 Blood Pressure 136/75 Pulse Oximetry 98 Oxygen Delivery Me thod Room Air Oxygen Flow Rate Fraction of Inspir ed Oxygen Hydration adequate: Yes Nausea and vomiting: No Pain level: 1 Mental status: Baseline
== END 2025-04-20 10:45 | disposition home or self-care (01) ==
PROVIDERS: Anesthesiology; PCP Nurse Practitioner Family; Visit Provider Orthopaedic Surgery
PROC: (CPT 26705; principal; 2025-04-20 08:40)
DX: S63.115A Dislocation of metacarpophalangeal joint of left thumb, initial encounter (principal); W19.XXXA Unspecified fall, initial encounter; Z79.891 Long term (current) use of opiate analgesic; F17.200 Nicotine dependence, unspecified, uncomplicated
CPT/HCPCS: 26705; 81025; J2250; J2704; J3010; J7030; J9999